=== PATIENT | female | born 1995 | race Caucasian/White ===

== ENCOUNTER 2022-08-27 19:17 | Emergency (ER) | payer SELFPAY ==
[~2022-08-27] VITALS: Ht 165.1 cm; Wt 51.7 kg
--- NOTE | 2022-08-27 20:40 | NUR ---
Dr. Todd at bedside. MSE in progress.
--- NOTE | 2022-08-27 20:58 | NUR ---
A/O x 4. NAD noted. Ambulatory with a steady gait. All belongings with patient. Patient discharged to home in stable condition. Written and verbal after care instructions given. Patient verbalizes understanding of instructions. Stressed follow up or return to ER for worsening s/s.
[2022-08-27 21:13] VITALS: BP 110/61
== END 2022-08-27 20:58 | disposition home or self-care (01) ==
LOC: ER 19:17
DX: G58.9 Mononeuropathy, unspecified (principal); M54.89 Other dorsalgia
CPT/HCPCS: A4663